=== PATIENT | male | born 1970 ===

== ENCOUNTER 2018-01-07 07:06 | Inpatient (IN) | payer OTHER ==
[~2018-01-07] VITALS: Ht 30.5 cm; Wt 6.0 kg
[2018-01-08] MEDS ORDERED: CEFADROXIL500 MG PO (08:24)
[2018-01-08] MEDS ORDERED: PERCOCET 5-3251 EACH PO (08:24)
[2018-01-08] MEDS ORDERED: INTEGRA PLUS C1 EACH PO (08:24)
[2018-01-08] MEDS ORDERED: XARELTO10 MG PO (08:24)
== END 2018-01-08 11:28 | disposition home or self-care (01) | DRG 494 ==
LOC: CIR.AMB 07:06 → SURG 14:59
PROVIDERS: Orthopaedic Surgery Sports Medicine
PROC: 0QUG0KZ Supplement Right Tibia with Nonautologous Tissue Substitute, Open Approach (ICD-10-PCS; 2018-01-07)
PROC: 0QTJ0ZZ Resection of Right Fibula, Open Approach (ICD-10-PCS; 2018-01-07)
PROC: 0QSG04Z Reposition Right Tibia with Internal Fixation Device, Open Approach (ICD-10-PCS; principal; 2018-01-07 07:00)
DX: S82.291K Other fracture of shaft of right tibia, subsequent encounter for closed fracture with nonunion (principal); S82.491K Other fracture of shaft of right fibula, subsequent encounter for closed fracture with nonunion